=== PATIENT | female | born 1970 | race Caucasian/White ===

== ENCOUNTER 2018-09-19 14:13 | Emergency (ER) | payer BC, MEDICARE ==
[~2018-09-19] VITALS: Ht 162.6 cm; Wt 68.2 kg
[2018-09-19] MEDS ORDERED: NS 1,000 ML IV ONE (14:45)
[2018-09-19] MEDS ORDERED: ONDANSETRON 4MG/2ML VIAL (J2405) IV ONE (14:45)
[2018-09-19] MEDS ORDERED: MORPHINE 4 MG/ML 1ML VIAL/SYRINGE (J2270) IV ONE (14:45)
[2018-09-19 15:12] LABS: BASO % 0.4 % (0.0-1.0); EOS # 0.1 10^3/uL (0.0-0.50); EOS % 1.2 % (0.0-3.0); HEMATOCRIT 34.3 % (36.0-47.0); HEMOGLOBIN 11.2 g/dl (12.0-15.5); LYMPH # 2.2 10^3/uL (1.5-4.5); LYMPH % 27.8 % (24.0-44.0); MEAN CORPUSCULAR HEMOGLOBIN 30.9 pg (27.0-33.0); MEAN CORPUSCULAR HGB CONC 32.7 g/dl (32.0-36.5); MEAN CORPUSCULAR VOLUME 94.8 fl (80.0-96.0); MONO # 0.6 10^3/uL (0.0-0.8); MONO % 7.9 % (0.0-5.0); NEUTROPHILS # 4.7 10^3/uL (1.8-7.7); NEUTROPHILS % 61.4 % (36.0-66.0); PLATELET COUNT, AUTOMATED 358 10^3/uL (150-450); RED BLOOD COUNT 3.62 10^6/uL (4.00-5.40); WHITE BLOOD COUNT 7.7 10^3/uL (4.0-10.0)
[2018-09-19 15:43] LABS: ALBUMIN 3.5 GM/DL (3.2-5.2); ALT/SGPT 87 U/L (12-78); AMYLASE 68 U/L (25-115); BILIRUBIN,DIRECT 0.4 MG/DL (0.0-0.2); BILIRUBIN,TOTAL 0.8 MG/DL (0.2-1.0); BLOOD UREA NITROGEN 20 MG/DL (7-18); CALCIUM LEVEL 8.4 MG/DL (8.5-10.1); CARBON DIOXIDE LEVEL 26 MEQ/L (21-32); CHLORIDE LEVEL 104 MEQ/L (98-107); CPK CREATINE PHOSPHOKINASE 181 U/L (26-192); CREATININE FOR GFR 0.81 MG/DL (0.55-1.30); GLOMERULAR FILTRATION RATE > 60.0 (>58); GLUCOSE, FASTING 83 MG/DL (70-100); LIPASE 213 U/L (73-393); POTASSIUM SERUM 3.8 MEQ/L (3.5-5.1); SODIUM LEVEL 139 MEQ/L (136-145); TOTAL PROTEIN 6.4 GM/DL (6.4-8.2); TROPONIN I < 0.02 NG/ML (< 0.10)
[2018-09-19] MEDS ORDERED: ISOVUE-370 76% 100ML VIAL (Q9967) As Ordered ONE (16:09)
--- NOTE | 2018-09-19 16:37 | REP ---
CT of the abdomen and pelvis with IV contrast, without bowel contrast: There are no comparisons. The patient has a medical history of cholecystectomy, bariatric surgery, hysterectomy and laminectomy. The visualized lung waldrop are unremarkable. The hepatic parenchyma is unremarkable. There are surgical clips in the gallbladder fossa. There are surgical clips in the stomach and adjacent small bowel loops compatible with bariatric surgery. The pancreas, spleen, adrenals and kidneys are unremarkable. The abdominal aorta is unremarkable. There is no ascites. There are no inflammatory changes in the mesentery. There is no bowel distension or obstruction. Pelvis: The vaginal cuff and adnexa are unremarkable. The bladder is unremarkable. There is no ascites or adenopathy. Impression: Postsurgical changes as described. Otherwise, negative CT of the abdomen and pelvis. Electronically Signed by Clint Hodges MD 09/19/2018 04:28 P
[2018-09-19] MEDS ORDERED: OMEP40CA2 PO (17:01)
[2018-09-19] MEDS ORDERED: CARA1TAB6 PO (17:02)
[2018-09-19 17:10] VITALS: BP 105/71
--- NOTE | 2018-09-20 17:44 | ECGEPIP ---
Stationary ECG Study [facility] - ED Test Date: 2018-09-19 Pat Name: SEBASTIAN HILLIARD Department: Room: - Gender: F Maintenance [facility]ter: [facility] : 1970 Requested By: YOSEF Wallace PA-C Order Number: [id number] Reading MD: Valentina López Measurements Intervals [place] Rate: 107 P: 63 AR: 130 QRS: 65 QRSD: 90 T: 31 QT: 327 QTc: 437 Interpretive Statements SINUS TACHYCARDIA ABNORMAL RHYTHM ECG NSTTW ABNORMALITY NO PRIOR FOR COMPARISON Electronically Signed On 09-20-2018 17:44:41 EST by Valentina López
[2018-09-21 11:38] LABS: HEPATITIS B SURFACE ANTIGEN NEGATIVE (NEGATIVE)
[2018-09-21 12:05] LABS: HEPATITIS B CORE ANTIBODY IGM NEGATIVE (NEGATIVE); HEPATITIS C VIRUS ABY INDEX < 0.0 INDEX (<0.8)
[2018-09-21 12:07] LABS: HEPATITIS A ANTIBODY IGM NEGATIVE (NEGATIVE)
== END 2018-09-19 17:23 | disposition home or self-care (01) ==
LOC: M ED 14:13
DX: R10.13 Epigastric pain (principal); R00.0 Tachycardia, unspecified; R94.31 Abnormal electrocardiogram [ECG] [EKG]; J45.909 Unspecified asthma, uncomplicated; Z98.84 Bariatric surgery status; Z88.1 Allergy status to other antibiotic agents; Z88.0 Allergy status to penicillin; Z88.2 Allergy status to sulfonamides
CPT/HCPCS: 74177; 80048; 80076; 81001; 82150; 82550; 82553; 83605; 83690; 84484; 85025; 86705; 86709; 86803; 87340; 93005; 96374; 96375; 99284; J2270; J2405; Q9967